=== PATIENT | male | born 1955 | race Hispanic/Latino ===

== ENCOUNTER 2016-08-30 09:29 | Emergency (ER) | payer OTHER ==
[2016-08-30 09:32] VITALS: BMI 25.8
[2016-08-30 09:33] VITALS: TEMP 97.6
[2016-08-30 09:53] LABS: ADD MANUAL DIFF? NO
[2016-08-30 09:57] LABS: BASO # 0.01 K/mm3 (0.0-2.0); BASO % 0.1 % (0.0-3.0); EOS # 0.1 (0.0-0.7); EOS % 1.7 % (1.5-5.0); GRAN # 4.63 (1.4-6.5); GRAN % 67.4 % (50.0-68.0); HEMATOCRIT 45.2 % (42.0-52.0); LYMPH # 1.6 (1.2-3.4); LYMPH % 23.1 % (22.0-35.0); MEAN CELL VOLUME 89.7 fL (80.0-105.0); MEAN CORPUSCULAR HEMOGLOBIN 31.3 pg (25.0-35.0); MEAN PLATELET VOLUME 9.7 fl (7.0-11.0); MONO # 0.5 (0.1-0.6); MONO % 7.7 % (1.0-6.0); PLATELET COUNT 215 10^3/uL (120.0-450.0); RED CELL DISTRIBUTION WIDTH 14.9 % (11.5-14.5); WHITE BLOOD COUNT 6.9 10^3/ul (4.5-11.0)
[2016-08-30 10:06] LABS: ALB/GLOB RATIO 1.2 (1.1-1.8); ALKALINE PHOSPHATASE 72 U/L (38-133); ALT/SGPT 32 U/L (7-56); AST/SGOT 24 U/L (15-59); BILIRUBIN,TOTAL 0.9 mg/dL (0.2-1.3); BLOOD UREA NITROGEN 12 mg/dL (7-21); CALCIUM 8.8 mg/dL (8.4-10.5); CARBON DIOXIDE 24 mmol/L (21-33); CHLORIDE 109 mmol/L (98-107); GFR AFRICAN-AMERICAN > 60; GLUCOSE,RANDOM 97 mg/dL (70-110); POTASSIUM 3.7 mmol/L (3.6-5.0); SODIUM 140 mmol/L (132-148); TOTAL PROTEIN 7.3 g/dL (5.8-8.3)
[2016-08-30 10:14] LABS: INR 1.02 (0.93-1.08)
[2016-08-30 10:17] LABS: TROPONIN I < 0.01 ng/mL
--- NOTE | 2016-08-30 10:36 | ED PDOC ---
Arrival/HPI - General Chief Complaint: Chest Pain Time Seen by Provider: 08/30/16 09:59 Historian: Patient - History of Present Illness Narrative History of Present Illness (Text): 08/30/16 09:52 A 61 year old male, who denies any significant past medical history, presents to the emergency department complaining of left sided chest pain associated with b/l upper and lower extremity numbness that started last night around 2200. Patient reports that the symptoms began right after getting a "nasty text ". Patient reports his fijessenia a week ago and has been under a lot of stress. He states the symptoms started yesterday after reading "a nasty text " for her tao son. Patient notes he lives in [place] has as drove here for his ramos services. Patient mentions he has some depression but does not have suicidal ideation or a plan and has a scheduled appointment with a psychiatrist back home in [place]. Patient denies any fever, nausea, vomiting, homicidal ideation or other complaints at this time. Time/Duration: Other Symptom Onset: Sudden Symptom Course: Unchanged Quality: Other Activities at Onset: Rest Context: Home Past Medical History - Provider Review Nursing Documentation Reviewed: Yes - Infectious Disease Hx of Infectious Diseases: None - Neurological Other/Comment: tourette's - Psychiatric Hx Substance Use: No Family/Social History - Physician Review Nursing Documentation Reviewed: Yes Family/Social History: Unknown Family HX Smoking Status: Current Some Days Smoker Hx Alcohol Use: No Hx Substance Use: No Allergies/Home Meds Allergies/Adverse Reactions: Allergies No Known Allergies Allergy (Verified 08/30/16 09:32) Review of Systems - Review of Systems Constitutional: absent: Fevers ENT: absent: Hearing Changes, Sore Throat Respiratory: absent: SOB, Cough Cardiovascular: Chest Pain (brought on only when thinking about stressful or upsetting things). absent: Palpitations, Edema, Calf Pain, TELLES, Orthopnea, Syncope Gastrointestinal: absent: Abdominal Pain, Constipation, Diarrhea, Nausea, Vomiting Genitourinary Male: absent: Hematuria Musculoskeletal: absent: Back Pain, Neck Pain Skin: absent: Rash Neurological: absent: Headache, Dizziness, Focal Weakness, Gait Changes, Speech Changes Endocrine: absent: Polyuria Psychiatric: Depression. absent: Suicidal Ideation, Other (homicidal ideation) Physical Exam Vital Signs Reviewed: Yes Vital Signs Temp Pulse Resp BP Pulse Ox 08/30/16 11:37 68 14 147/95 H 98 08/30/16 09:32 97.6 F 79 18 159/96 H 100 Temperature: Afebrile Blood Pressure: Hypertensive Pulse: Regular Respiratory Rate: Normal Appearance: Positive for: Well-Appearing, Non-Toxic, Other (tearful and anxious) Pain Distress: None Mental Status: Positive for: Alert and Oriented X 3 - Systems Exam Head: Present: Atraumatic, Normocephalic Pupils: Present: PERRL Extroacular Muscles: Present: EOMI Conjunctiva: Present: Normal Mouth: Present: Moist Mucous Membranes Neck: Present: Normal Range of Motion Respiratory/Chest: Present: Clear to Auscultation, Good Air Exchange. No: Respiratory Distress, Accessory Muscle Use Cardiovascular: Present: Regular Rate and Rhythm, Normal S1, S2. No: Murmurs Abdomen: Present: Normal Bowel Sounds. No: Tenderness, Distention, Peritoneal Signs Back: Present: Normal Inspection Upper Extremity: Present: Normal Inspection. No: Cyanosis, Edema Lower Extremity: Present: Normal Inspection. No: Edema Neurological: Present: GCS=15, CN II-XII Intact, Motor Func Grossly Intact, Normal Sensory Function. No: Speech Normal (stuttering which worsens when he talks about his stressors) Skin: Present: Warm, Dry, Normal Color. No: Rashes Psychiatric: Present: Alert, Oriented x 3, Normal Insight, Normal Concentration Medical Decision Making ED Course and Treatment: 08/30/16 09:52 Impression: A 61 year old male with a recent loss in the family complaining of chest pain that has been persistent for >10 hours. Presentation is not consistent with cardiac and seems more like anxiety attack brought on my thinking about stressful things. He has a low heart score. Differential Diagnosis include but are not limited to: ACS vs. Stress vs. PE ( due to prolong immobilization from recent travel) Plan: -- EKG -- Chest X-ray -- Labs -- Aspirin -- Reassess and disposition Progress Notes: EKG: Ordered, reviewed, and independently interpreted the EKG. Rate : 81 BPM Rhythm : NSR Interpretation : Normal intervals, no ST/T changes. Comparison : No previous EKG for comparison. 08/30/16 11:00 Chest X-ray: Creator : Jhonathan Cho MD COMPARISON: No prior. FINDINGS: LUNGS: Questionable minor atelectasis and or scarring left lung base. PLEURA: No significant pleural effusion identified, no pneumothorax apparent. CARDIOVASCULAR: Normal. OSSEOUS STRUCTURES: No significant abnormalities. VISUALIZED UPPER ABDOMEN: Normal. OTHER FINDINGS: None. IMPRESSION: Questionable minor atelectasis and or scarring left lung base 08/30/16 11:14 Cxray negative. Trop x 1 negative. D-dimer negative. Presentation is consistent with anxiety and patient can bring on symptoms by thinking about stressful things. He reports that he was follow-up in [place] and wants to be discharged. 08/31/16 23:04 - Lab Interpretations Lab Results: 08/30/16 09:40 08/30/16 09:40 Lab Results 08/30/16 10:03: D-Dimer, Quantitative 0.45 08/30/16 09:40: Sodium 140, Potassium 3.7, Chloride 109 H, Carbon Dioxide 24, Anion Gap 11, BUN 12, Creatinine 0.7, Est GFR ( Amer) > 60, Est GFR (Non- Af Amer) > 60, Random Glucose 97, Calcium 8.8, Total Bilirubin 0.9, AST 24, ALT 32, Alkaline Phosphatase 72, Troponin I < 0.01, Total Protein 7.3, Albumin 4.0, Globulin 3.3, Albumin/Globulin Ratio 1.2 08/30/16 09:40: PT 11.0, INR 1.02, APTT 28.0 08/30/16 09:40: WBC 6.9, RBC 5.04, Hgb 15.8, Hct 45.2, MCV 89.7, MCH 31.3, MCHC 35.0, RDW 14.9 H, Plt Count 215, MPV 9.7, Gran % 67.4, Lymph % (Auto) 23.1, [place] % (Auto) 7.7 H, Eos % (Auto) 1.7, Baso % (Auto) 0.1, Gran # 4.63, Lymph # 1.6, [place] # 0.5, Eos # 0.1, Baso # 0.01 I have reviewed the lab results: Yes - RAD Interpretation Radiology Orders: 08/30/16 09:45 CHEST PORTABLE [RAD] Stat - Medication Orders Current Medication Orders: Discontinued Medications Aspirin (Aspirin Chewable) 324 mg PO STAT STA Stop: 08/30/16 10:04 Last Admin: 08/30/16 10:14 Dose: 324 mg - Scribe Statement The provider has reviewed the documentation as recorded by the Rolando Bowen Provider Rolando Attestation: All medical record entries made by the Rolando were at my direction and personally dictated by me. I have reviewed the chart and agree that the record accurately reflects my personal performance of the history, physical exam, medical decision making, and the department course for this patient. I have also personally directed, reviewed, and agree with the discharge instructions and disposition. Disposition/Present on Arrival - Present on Arrival Any Indicators Present on Arrival: No History of DVT/PE: No History of Uncontrolled Diabetes: No Urinary Catheter: No History of Decub. Ulcer: No History Surgical Site Infection Following: None - Disposition Have Diagnosis and Disposition been Completed?: Yes Diagnosis: Chest pain Disposition: HOME/ ROUTINE Disposition Time: 11:14 Patient Plan: Discharge Condition: GOOD Discharge Instructions (ExitCare): Chest Pain (ED) Additional Instructions: Follow up with PMD within 2 days. Follow-up with senior firewall engineer within 72 hours. Return to ED if condition worsens. Referrals: [facility] Jessica Alvarez, [Non-Staff] - Follow up with primary Yao Ribeiro MD [Staff Provider] - Follow up with primary
--- NOTE | 2016-08-30 10:59 | RAD ---
HISTORY: chest pain COMPARISON: No prior. FINDINGS: LUNGS: Questionable minor atelectasis and or scarring left lung base. PLEURA: No significant pleural effusion identified, no pneumothorax apparent. CARDIOVASCULAR: Normal. OSSEOUS STRUCTURES: No significant abnormalities. VISUALIZED UPPER ABDOMEN: Normal. OTHER FINDINGS: None. IMPRESSION: Questionable minor atelectasis and or scarring left lung base
[2016-08-30 11:37] VITALS: BP 147/95; PULSE 68; RESP 14; O2SAT 98
--- NOTE | 2016-08-30 22:25 | CARD ---
APPROVED REPORT EKG Measurement Heart [id number] <Conclusion> Normal sinus rhythm Normal ECG
== END 2016-08-30 11:48 | disposition home or self-care (01) ==
LOC: ED 09:29
DX: R07.9 Chest pain, unspecified (principal)